=== PATIENT | female | born 1955 | race Caucasian/White ===

== ENCOUNTER → 2019-04-18 | Outpatient (CLI) | payer BC ==
--- NOTE | 2019-04-18 15:04 | MR ---
EXAMINATION TYPE: MR lumbar spine wo/w con DATE OF EXAM: 04/18/2019 COMPARISON: None HISTORY: 63-year-old female with back pain, Spinal stenosis, surgery 2016 Technique: Multiplanar, multisequence images of the lumbar spine were obtained before and after admin istration of 8.5 mL intravenous Gadavist gadolinium contrast. FINDINGS: Vertebral body heights are preserved. Mild heterogeneous marrow signal without suspicious bone marrow replacement. However, there is some e dematous, enhancing Modic type I endplate change at L4-L5 where there is an associated grade 1, nearl y grade 2 anterolisthesis. At L4-L5, moderate degenerative disc disease with narrowed, desiccated and bulging disc. Advanced hyp ertrophic facet arthropathy is present. Conus medullaris is normal. Background of mild to moderate multilevel degenerative disc disease. No prevertebral or paravertebral soft tissue abnormality. At T12-L1, the spinal canal neuroforaminal stenosis. At L1-L2, no spinal canal or foraminal stenosis. At L2-L3, minimal bulging disc minimally encroaches into the inferior foramen on both sides. No signi ficant canal or foraminal stenosis. At L3-L4, minimal bulging disc with facet arthropathy. There is minimal inferior neural foraminal jet rowing on both sides. L4-L5, there is advanced hypertrophic facet arthropathy with grade 1, nearly grade 2 anterolisthesis and bulging disc. Changes result in mild to moderate focal spinal canal stenosis and mild to moderate bilateral neuroforaminal stenosis. At L5-S1, hypertrophic facet arthropathy with bulging disc. No significant canal or foraminal stenosi s. Some enhancing scar tissue is present at the L4-L5 laminectomy defect. No suspicious enhancing epidur al or perineural granulation tissue. IMPRESSION: 1. There seems to be post surgical change of L4-L5 laminectomy. Some enhancing scar tissue is present here in the laminectomy region. No suspicious enhancing epidural or perineural granulation tissue. 2. Advanced hypertrophic facet arthropathy L4-L5 with grade 1, nearly grade 2 anterolisthesis here an d associated moderate degenerative disc disease with accompanying edematous Modic type I endplate sunshine nge. 3. Mild to moderate spinal canal stenosis here at L4-L5 with mild to moderate bilateral neuroforamina l stenosis.
== END | disposition home or self-care (01) ==
LOC: RADMRIMAIN 12:58
PROVIDERS: ATTEND Internal Medicine
DX: M48.061 Spinal stenosis, lumbar region without neurogenic claudication (principal); M43.16 Spondylolisthesis, lumbar region; M51.36 Other intervertebral disc degeneration, lumbar region; M46.96 Unspecified inflammatory spondylopathy, lumbar region; G95.19 Other vascular myelopathies; Z98.890 Other specified postprocedural states
CPT/HCPCS: 72158; A9585

== ENCOUNTER → 2021-05-10 | Outpatient (CLI) | payer MEDICARE ==
--- NOTE | 2021-05-10 08:05 | MR ---
EXAMINATION TYPE: MR lumbar spine wo con DATE OF EXAM: 05/10/2021 COMPARISON: MRI lumbar spine April 18, 2019 HISTORY: RLQ pain, low back pain TECHNIQUE: Multiplanar, multisequence imaging of the lumbar spine is performed without IV contrast. FINDINGS: Sagittal images of the lumbar spine show vertebral body Heights to remain satisfactory. Mul tilevel disc desiccation is redemonstrated. Stable moderate disc space narrowing L4-L5 level with gr gallo 2 anterolisthesis L4 on L5 The conus medullaris is normal in position and signal ending at mid L1 level. Mild multilevel anterior spurring. Axial images show T12-L1 and L1-L2 levels to remain within normal limits. Axial images at L2-L3 level demonstrates mild broad disc bulge minimally effacing the anterior thecal sac and mild facet arthropathy bilaterally. Patent bilateral neural foramina. No significant change from prior. Axial images at L3-L4 level show mild broad disc bulge with right paracentral disc protrusion compone nt and mild facet degenerative changes bilaterally. Mild effacement of thecal sac. Patent bilateral n eural foramina. No significant change from prior. Axial images at L4-L5 level show moderate to advanced facet degenerative changes bilaterally. Spondyl olisthesis with broad disc bulge is redemonstrated. There is effacement of the anterior and posterior lateral thecal sac. There is moderate bilateral neural foraminal narrowing. Posterior scar tissue at this level is redemonstrated from right-sided laminectomy defect No significant change from prior. Axial images at L5-S1 level redemonstrated [id number] facet degenerative changes bilaterally. S kenton canal is preserved. Bilateral neural foramina are patent. Paraspinal muscle bulk is preserved. IMPRESSION: Multilevel degenerative changes as detailed above. Findings remain greatest at L4-L5 leve l. No significant change or progression from prior MRI.
--- NOTE | 2021-05-10 09:32 | MR ---
EXAMINATION TYPE: MR hip RT wo con DATE OF EXAM: 05/10/2021 COMPARISON: None. HISTORY: RLQ pain, Rt hip pain Standard multiplanar, multisequence MRI departmental protocol Multiplanar, multisequence images of the pelvis focusing on the right hip were acquired without contr ast. FINDINGS: Hip joints appear symmetric with moderate axial joint space loss. There is small left hip j oint effusion. There is asymmetric moderate to large size right hip joint effusion. Mild to moderate neck collar spurring bilaterally is seen greater in the right hip versus left hip. There is some subc hondral cystic change involving the anterior aspect of the superior acetabulum with adjacent heteroge neous increased T2 signal. Adjacent labral tear is suspected at this level. Femoral head shape are ma intained bilaterally. No suspicious groin hernia or adenopathy identified. Muscle bulk is symmetric and maintained bilatera lly. Uterus is surgically absent or markedly atrophic in appearance. Sigmoid colonic diverticula are seen. IMPRESSION: As above. Asymmetric increased degenerative findings to right hip are noted.
== END | disposition home or self-care (01) ==
LOC: RADMRIMAIN 06:24
PROVIDERS: ATTEND Family Medicine
DX: M51.26 Other intervertebral disc displacement, lumbar region (principal); M43.16 Spondylolisthesis, lumbar region; M47.817 Spondylosis without myelopathy or radiculopathy, lumbosacral region; M25.452 Effusion, left hip; M25.451 Effusion, right hip; K57.30 Diverticulosis of large intestine without perforation or abscess without bleeding; M25.752 Osteophyte, left hip; M25.751 Osteophyte, right hip; M16.11 Unilateral primary osteoarthritis, right hip
CPT/HCPCS: 72148

== ENCOUNTER → 2021-05-12 | Outpatient (CLI) | payer MEDICARE ==
--- NOTE | 2021-05-13 07:36 | MR ---
EXAMINATION TYPE: MR pelvis wo con DATE OF EXAM: 05/12/2021 COMPARISON: Right hip MRI 2 days earlier. HISTORY: Groin Pain right-sided Standard multiplanar, multisequence MRI departmental protocol Multiplanar, multisequence images of the pelvis were acquired without contrast. FINDINGS: Osseous structures show no suspicious edema. Sacroiliac joints are preserved. Pubic symphys is is intact. As noted on recent right hip MRI there is asymmetric increased right-sided hip joint ef fusion along with asymmetric increased narrowing and spurring in the right hip joint versus the oppos ite left side. Muscle bulk is symmetric and maintained bilaterally. There are subcentimeter bilateral groin lymph nodes. No abnormal groin adenopathy. No suspicious groin hernia present bilaterally. Pelvis shows diverticulosis in visualized portion of the left and sigmoid colon. Uterus is surgically absent. Bladder is poorly distended. There is spondylolisthesis L4 on L5 redemonstrated correlating with recent MRI lumbar spine study. No suspicious focal pelvic fluid collection or adenopathy is note d. IMPRESSION: As above. No suspicious new findings identified not seen on recent MRI right hip and MRI lumbar spine studies.
== END | disposition home or self-care (01) ==
LOC: RADMRIMAIN 05:55
PROVIDERS: ATTEND Family Medicine
DX: M25.451 Effusion, right hip (principal); Z90.710 Acquired absence of both cervix and uterus
CPT/HCPCS: 72195